=== PATIENT | male | born 1990 | race Caucasian/White ===

== ENCOUNTER 2017-05-16 20:21 | Emergency (ER) | payer OTHER ==
[2017-05-16 20:50] VITALS: TEMP 98.3
[2017-05-16] MEDS ORDERED: Oxycodone/Acetaminophen 5/325 mg Tab PO STA (21:25)
--- NOTE | 2017-05-16 21:30 | ED PDOC ---
Arrival/HPI - General Chief Complaint: Dental Pain Time Seen by Provider: 05/16/17 21:25 - History of Present Illness Narrative History of Present Illness (Text): 05/16/17 21:37 Pt is a 26 yo F presents to ED with dental pain. Pt states that 1 year ago he was in [place] when he began having dental pain. He was evaluated by a dentist in [place] for dental caries. At that time the dentist drilled into the left inferior first molar and removed some of the nerve. Patient was instructed to return in 3 weeks to have the tooth filled. However, he left the country before he could follow up. Patients states after the procedure he never followed up with a dentist. Pt states that recently pain worsened. He tried using ibuprofen , but it did not help. Pt denied change in voice, drooling, fever, CP, SOB, n/v/ d, chills, TOBIN, or dizziness. Past Medical History - Provider Review Nursing Documentation Reviewed: Yes - Psychiatric Hx Psychophysiologic Disorder: No Hx Substance Use: No Family/Social History - Physician Review Nursing Documentation Reviewed: Yes Family/Social History: No Known Family HX Smoking Status: Heavy Smoker > 10 Cigarettes Daily Hx Alcohol Use: Yes Frequency of alcohol use: Socially Hx Substance Use: No Allergies/Home Meds Allergies/Adverse Reactions: Allergies No Known Allergies Allergy (Verified 05/16/17 20:45) Review of Systems - Review of Systems Constitutional: Normal Eyes: Normal ENT: Other (dental pain/caries) Respiratory: Normal Cardiovascular: Normal Gastrointestinal: Normal Genitourinary Male: Normal Musculoskeletal: Normal Skin: Normal Neurological: Normal Endocrine: Normal Hemo/Lymphatic: Normal Psychiatric: Normal Physical Exam Vital Signs Reviewed: Yes Vital Signs Temp Pulse Resp BP Pulse Ox 05/16/17 20:45 98.3 F 85 16 136/84 100 Temperature: Afebrile Blood Pressure: Normal Pulse: Regular Respiratory Rate: Normal Appearance: Positive for: Well-Appearing Pain Distress: Moderate Mental Status: Positive for: Alert and Oriented X 3 - Systems Exam Head: Present: Atraumatic, Normocephalic Extroacular Muscles: Present: EOMI Mouth: No: Normal Teeth (Left, inferior first molar partially drilled, surrounding gingiva erythematous. No signs of abscess; inferior right first molar chipped) Pharnyx: Present: Normal Neck: Present: Normal Range of Motion Respiratory/Chest: Present: Clear to Auscultation. No: Respiratory Distress, Accessory Muscle Use, Wheezes, Rales Cardiovascular: Present: Regular Rate and Rhythm, Normal S1, S2. No: Murmurs, Rub, Gallop Abdomen: No: Tenderness, Distention, Peritoneal Signs, Rebound, Guarding Medical Decision Making ED Course and Treatment: 05/16/17 21:45 Assessment: 26 yo M presents to ED with infected dental caries. Plan: - Percocet - Penicillin Discussed with patient that tooth was likely infected and could possibly develop into abscess. Patient was given referral to [facility]. Advised patient to call and follow up as soon as possible. Patient given prescription for Penicillin VK and Percocet. Patient instructed not to operate heavy machinery if on medication. Pt acknowledged and agreed. Impression: infected dental caries - Medication Orders Current Medication Orders: Discontinued Medications Oxycodone/Acetaminophen (Percocet 5/325 Mg Tab) 1 tab PO STAT STA Stop: 05/16/17 21:26 Penicillin V Potassium (Penicillin Vk Tab) 500 mg PO STAT STA PRN Reason: Protocol Stop: 05/16/17 21:27 Disposition/Present on Arrival - Present on Arrival Any Indicators Present on Arrival: No History of DVT/PE: No History of Uncontrolled Diabetes: No Urinary Catheter: No History of Decub. Ulcer: No History Surgical Site Infection Following: None - Disposition Have Diagnosis and Disposition been Completed?: Yes Diagnosis: Infected dental caries Disposition: HOME/ ROUTINE Disposition Time: 21:27 Patient Plan: Discharge Patient Problems: Current Active Problems Problem Status Onset Infected dental caries Acute Condition: GOOD Discharge Instructions (ExitCare): Tooth Abscess (DC), Dental Pain (DC) Additional Instructions: 1. Follow up with dentist within [place] [address] Phone: [phone] Tuesday: 8am-8pm Tuesday: 9am-3pm Tuesday: Closed 2. Complete antibiotics as prescribed 3. Take percocet for pain. Do not drive or operate any heavy machinery when using medication. 4. Return to ED if symptoms worsen Prescriptions: oxyCODONE/Acetaminophen [Percocet 5/325 mg Tab] 1 ea PO QID #20 tab Penicillin VK [Penicillin VK Tab] 500 mg PO TID #30 tab Referrals: [facility] Profile Req, [Primary Care Provider] - Follow up with primary Forms: [employer] (Portuguese)
[2017-05-16 21:49] VITALS: BP 127/68; PULSE 78; RESP 18; O2SAT 98
== END 2017-05-16 22:00 | disposition home or self-care (01) ==
LOC: ED 20:21
DX: K02.9 Dental caries, unspecified (principal); F17.210 Nicotine dependence, cigarettes, uncomplicated